=== PATIENT | male | born 1990 | race African-American/Black ===

== ENCOUNTER 2016-11-15 11:34 | Emergency (ER) | payer SELFPAY ==
[~2016-11-15] VITALS: Ht 167.6 cm; Wt 65.8 kg
[~2016-11-15 11:34] MED LIST: HYDR25CA PO
[2016-11-15 11:38] VITALS: BP 129/72
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
[2016-11-15] MEDS ORDERED: HYDROCODONE/APAP 5/325MG TABLET. PO ONE (13:15)
[2016-11-15] MEDS ORDERED: HYDR-971 PO (13:18)
== END 2016-11-15 13:41 | disposition home or self-care (01) ==
LOC: ER 11:34
DX: S62.306A Unspecified fracture of fifth metacarpal bone, right hand, initial encounter for closed fracture (principal); K21.9 Gastro-esophageal reflux disease without esophagitis; F17.200 Nicotine dependence, unspecified, uncomplicated; F12.10 Cannabis abuse, uncomplicated; W19.XXXA Unspecified fall, initial encounter; Y93.89 Activity, other specified; Y92.89 Other specified places as the place of occurrence of the external cause; Y99.8 Other external cause status
CPT/HCPCS: 29125; 73130; 99284-25

== ENCOUNTER 2019-06-01 11:47 | Emergency (ER) | payer SELFPAY ==
[~2019-06-01] VITALS: Ht 165.1 cm; Wt 68.0 kg
[~2019-06-01 11:47] MED LIST changes: +HYDR-3164 PO
[2019-06-01] MEDS ORDERED: DICYCLOMINE HCL 10 MG CAPSULE PO ONE (12:30)
[2019-06-01] MEDS ORDERED: KETOROLAC 15 MG/ML VIAL. IV ONE (12:30)
[2019-06-01 12:32] LABS: BILIRUBIN,URINE SMALL (NEG); CLARITY,URINE CLEAR; COLOR,URINE YELLOW; NITRITE,URINE NEGATIVE (NEG); PH,URINE 7.5; PROTEIN,URINE NEGATIVE (NEG-TRACE)
[2019-06-01 12:39] LABS: BARBITURATES NEG (NEG); BENZODIAZEPINES NEG (NEG); CANNABINOIDS POS (NEG); COCAINE POS (NEG); METHADONE NEG (NEG); OPIATES NEG (NEG); PHENCYCLIDINE NEG (NEG)
[2019-06-01 12:40] LABS: AMPHETAMINE/METHAMPHETAMINE NEG (NEG)
[2019-06-01 12:49] LABS: SQUAMOUS EPITHELIAL CELL,UR FEW /LPF
[2019-06-01 12:50] LABS: AMORPHOUS SEDIMENT,UR PRESENT /HPF
[2019-06-01 12:51] LABS: BACTERIA,URINE 0 /HPF (0-FEW)
[2019-06-01 12:56] LABS: BASO % 0 % (0-3); EOS # 0.2 x10^3/uL (0.0-0.7); EOS % 2 % (0-3); HEMOGLOBIN 14.8 g/dL (13.0-17.5); LYMPH # 1.4 x10^3/uL (1.0-4.8); LYMPH % 13 % (24-48); MEAN CORPUSCULAR HEMOGLOBIN 27 pg (25-35); MEAN CORPUSCULAR HGB CONC 33 g/dL (31-37); MEAN CORPUSCULAR VOLUME 83 fL (79-100); MONO # 0.7 x10^3/uL (0.0-1.1); MONO % 6 % (0-9); NEUT # 8.7 x10^3/uL (1.8-7.7); NEUT % 79 % (31-73); PLATELET COUNT 256 x10^3/uL (140-400); RED BLOOD COUNT 5.42 x10^6/uL (4.30-5.70); RED CELL DISTRIBUTION WIDTH 14.5 % (11.5-14.5)
[2019-06-01 13:02] LABS: CALCIUM 9.5 mg/dL (8.5-10.1); CREATININE 0.9 mg/dL (0.7-1.3); GFR 122.5; POTASSIUM 4.5 mmol/L (3.5-5.1)
[2019-06-01 13:08] LABS: ALBUMIN 3.8 g/dL (3.4-5.0); ALBUMIN/GLOBULIN RATIO 1.2 (1.0-1.7); TOTAL BILIRUBIN 0.4 mg/dL (0.2-1.0); TOTAL PROTEIN 7.1 g/dL (6.4-8.2)
[2019-06-01 13:12] VITALS: BP 122/78
[2019-06-01] MEDS ORDERED: IOHEXOL 300 MG/ML 100ML VIAL. IV ONE (13:45)
[2019-06-01] MEDS ORDERED: CONTRAST GIVEN. MC PRN (13:45)
--- NOTE | 2019-06-01 14:01 | PHYS DOC ---
Past Medical History Past Medical History: GERD, Other Additional Past Medical Histor: ETOH POISONING Past Surgical History: Other Additional Past Surgical Histo: EGD Additional Information: 1/2 pack a day Alcohol Use: None Drug Use: Marijuana Adult General Chief Complaint Chief Complaint: ABDOMINAL PAIN [facility] HPI Patient is a 29 year old male presenting with chief complaint of abdominal pain has had this on and off for 3 years he said it started after drinking too heavily one night he does smoke marijuana regularly this pain is more lower than he is typically used to there however it is cramping in nature some nausea no dysuria no fever that he knows of no prior surgical history at all it was a 9 out of 10 and severe when he woke up is gradually decreased down to about a 5 out of 10 or so however it is still present and worse than he is used to. Review of Systems Review of Systems Constitutional: Denies fever or chills [] Eyes: Denies change in visual acuity, redness, or eye pain [] Cardiovascular: No additional information not addressed in HPI [] GI: Integument: Denies rash or skin lesions [] Neurologic: Denies headache, focal weakness or sensory changes [] Endocrine: Denies polyuria or polydipsia [] All other systems were reviewed and found to be within normal limits, except as documented in this note. Current Medications Current Medications Current Medications Medications (Trade) Dose Ordered Sig/Ebre Start Time Stop Time Status Last Admin Dose Admin Dicyclomine HCl (Bentyl) 10 mg 1X ONCE 06/01/19 12:30 06/01/19 12:31 DC 06/01/19 12:34 10 MG Info (CONTRAST GIVEN -- Rx MONITORING) 1 each PRN DAILY PRN 06/01/19 13:45 06/03/19 13:44 Iohexol (Omnipaque 300 Mg/ml) 75 ml 1X ONCE 06/01/19 13:45 06/01/19 13:46 DC Ketorolac Tromethamine (Toradol 15mg Vial) 15 mg 1X ONCE 06/01/19 12:30 06/01/19 12:31 DC 06/01/19 12:44 15 MG Allergies Allergies Allergies Coded Allergies Type Severity Reaction Last Updated Verified No Known Drug Allergies 11/23/13 No Physical Exam Physical Exam Constitutional: Well developed, well nourished, no acute distress, non-toxic appearance. [] HENT: Normocephalic, atraumatic, bilateral external ears normal, oropharynx moist, no oral exudates, nose normal. [] Eyes: PERRLA, EOMI, conjunctiva normal, no discharge. [] Neck: Normal range of motion, no tenderness, supple, no stridor. [] Cardiovascular:Heart rate regular rhythm, no murmur [] Lungs & Thorax: Bilateral breath sounds clear to auscultation []mild suprapubic tenderness, mild rlq tenderness, no masses, no pulsatile masses. [] Skin: Warm, dry, no erythema, no rash. [] Back: No tenderness, no CVA tenderness. [] Extremities: No tenderness, no cyanosis, no clubbing, ROM intact, no edema. [] Neurologic: Alert and oriented X 3, normal motor function, normal sensory function, no focal deficits noted. [] Psychologic: Affect normal, judgement normal, mood normal. [] Current Patient Data Vital Signs Vital Signs Date Time Temp Pulse Resp B/P (MAP) Pulse Ox O2 Delivery O2 Flow Rate FiO2 06/01/19 13:12 62 18 122/78 (93) 98 Room Air 06/01/19 11:58 98.7 98.7 Lab Values Laboratory Tests Test 06/01/19 11:57 06/01/19 12:45 Urine Collection Type Unknown Urine Color Yellow Urine Clarity Clear Urine pH 7.5 Urine Specific [place] 1.025 Urine Protein Negative mg/dL (NEG-TRACE) Urine Glucose (UA) Negative mg/dL (NEG) Urine Ketones (Stick) 40 mg/dL (NEG) Urine Blood Negative (NEG) Urine Nitrite Negative (NEG) Urine Bilirubin Small (NEG) Urine Urobilinogen Dipstick 1.0 mg/dL (0.2 mg/dL) Urine Leukocyte Esterase Negative (NEG) Urine RBC 1-2 /HPF (0-2) Urine WBC 1-4 /HPF (0-4) Urine Squamous Epithelial Cells Few /LPF Urine Amorphous Sediment Present /HPF Urine Bacteria 0 /HPF (0-FEW) Urine Mucus Marked /LPF Urine Opiates Screen Neg (NEG) Urine Methadone Screen Neg (NEG) Urine Barbiturates Neg (NEG) Urine Phencyclidine Screen Neg (NEG) Urine Amphetamine/Methamphetamine Neg (NEG) Urine Benzodiazepines Screen Neg (NEG) Urine Cocaine Screen Pos (NEG) Urine Cannabinoids Screen Pos (NEG) Urine Ethyl Alcohol Neg (NEG) White Blood Count 11.0 x10^3/uL (4.0-11.0) Red Blood Count 5.42 x10^6/uL (4.30-5.70) Hemoglobin 14.8 g/dL (13.0-17.5) Hematocrit 45.0 % (39.0-53.0) Mean Corpuscular Volume 83 fL (79-100) Mean Corpuscular Hemoglobin 27 pg (25-35) Mean Corpuscular Hemoglobin Concent 33 g/dL (31-37) Red Cell Distribution Width 14.5 % (11.5-14.5) Platelet Count 256 x10^3/uL (140-400) Neutrophils (%) (Auto) 79 % (31-73) H Lymphocytes (%) (Auto) 13 % (24-48) L Monocytes (%) (Auto) 6 % (0-9) Eosinophils (%) (Auto) 2 % (0-3) Basophils (%) (Auto) 0 % (0-3) Neutrophils # (Auto) 8.7 x10^3/uL (1.8-7.7) H Lymphocytes # (Auto) 1.4 x10^3/uL (1.0-4.8) Monocytes # (Auto) 0.7 x10^3/uL (0.0-1.1) Eosinophils # (Auto) 0.2 x10^3/uL (0.0-0.7) Basophils # (Auto) 0.0 x10^3/uL (0.0-0.2) Sodium Level 142 mmol/L (136-145) Potassium Level 4.5 mmol/L (3.5-5.1) Chloride Level 104 mmol/L (98-107) Carbon Dioxide Level 30 mmol/L (21-32) Anion Gap 8 (6-14) Blood Urea Nitrogen 10 mg/dL (8-26) Creatinine 0.9 mg/dL (0.7-1.3) Estimated GFR (Cockcroft-Gault) 122.5 BUN/Creatinine Ratio 11 (6-20) Glucose Level 99 mg/dL (70-99) Calcium Level 9.5 mg/dL (8.5-10.1) Total Bilirubin 0.4 mg/dL (0.2-1.0) Aspartate Amino Transferase (AST) 34 U/L (15-37) Alanine Aminotransferase (ALT) 22 U/L (16-63) Alkaline Phosphatase 66 U/L (46-116) Total Protein 7.1 g/dL (6.4-8.2) Albumin 3.8 g/dL (3.4-5.0) Albumin/Globulin Ratio 1.2 (1.0-1.7) Lipase 101 U/L (73-393) Laboratory Tests 06/01/19 12:45 Laboratory Tests 06/01/19 12:45 EKG EKG [] Radiology/Procedures Radiology/Procedures [] Course & Med Decision Making Course & Med Decision Making Pertinent Labs and Imaging studies reviewed. (See chart for details) []29 YO M WITH ABDO PAIN fairly long-standing however complains of more severe lower abdominal pain and usual had some mild right lower quadrant tenderness we did a CT scan abdomen and pelvis. No acute or destructive osseous abnormality. Impression: No acute abnormality seen throughout the abdomen or pelvis to account for the patient's symptoms. Note is made that the appendix is not definitively visualized but there are no inflammatory changes in its expected location to suggest acute appendicitis. Electronically signed by: SANCHEZ FELIPE MD (06/01/2019 2:04 PM) [facility] DICTATED and SIGNED BY: SANCHEZ FELIPE MD PT FEELING SOMEWAHT BETTER. plan to d/c home at this time strict return precautions discussed. Dragon Disclaimer Dragon Disclaimer This electronic medical record was generated, in whole or in part, using a voice recognition dictation system. Departure Departure Impression: Primary Impression: Abdominal pain Disposition: HOME, SELF-CARE Condition: STABLE Referrals: NO PCP (PCP) LIVAN BENEDICT MD Jun 01, 2019 14:01
--- NOTE | 2019-06-01 14:06 | RAD ---
Study: CT abdomen/pelvis with intravenous contrast Indication: Diffuse abdominal pain. Comparison: CT abdomen/pelvis 11/22/2013 Technique: Helical CT imaging performed of the abdomen and pelvis after the intravenous administration of 75 cc Isovue-370 contrast. Sagittal and coronal reformats were obtained. One or more of the following individualized dose reduction techniques were utilized for this examination: 1. Automated exposure control 2. Adjustment of the mA and/or kV according to patient size 3. Use of iterative reconstruction technique. Findings: The visualized lower lungs and heart are unremarkable. No focal abnormality of the liver, gallbladder, pancreas, spleen, adrenal glands or kidneys. The urinary bladder and prostate are within normal limits. Nonobstructed bowel. The appendix is not definitively visualized but there are no inflammatory changes in the right lower quadrant to suggest acute appendicitis. Unremarkable major vascular structures. No free fluid or air. No mesenteric or pelvic adenopathy. No inguinal adenopathy. Unremarkable body wall soft tissues. Symmetric muscular bulk. No acute or destructive osseous abnormality. Impression: No acute abnormality seen throughout the abdomen or pelvis to account for the patient's symptoms. Note is made that the appendix is not definitively visualized but there are no inflammatory changes in its expected location to suggest acute appendicitis. Electronically signed by: SANCHEZ FELIPE MD (06/01/2019 2:04 PM) [facility]
== END 2019-06-01 15:11 | disposition home or self-care (01) ==
LOC: ER 11:47
DX: R10.31 Right lower quadrant pain (principal); K21.9 Gastro-esophageal reflux disease without esophagitis; F17.200 Nicotine dependence, unspecified, uncomplicated
CPT/HCPCS: 36415; 74177; 80053; 80307; 81001; 83690; 85025; 96374; 99285; J1885